=== PATIENT | female | born 1980 | race African-American/Black ===

== ENCOUNTER 2017-08-03 18:20 | Emergency (ER) | payer OTHER, BC ==
[~2017-08-03] VITALS: Ht 165.1 cm; Wt 120.7 kg
[2017-08-03 19:21] VITALS: BP 182/102
[2017-08-03] MEDS ORDERED: IBUPROFEN 800 MG TABLET. PO ONE (20:15)
[2017-08-03] MEDS ORDERED: CYCL10TA2 PO (20:19)
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
== END 2017-08-03 20:32 | disposition home or self-care (01) ==
LOC: ER 18:20
DX: S16.1XXA Strain of muscle, fascia and tendon at neck level, initial encounter (principal); S29.012A Strain of muscle and tendon of back wall of thorax, initial encounter; S70.02XA Contusion of left hip, initial encounter; S70.12XA Contusion of left thigh, initial encounter; I10 Essential (primary) hypertension; E66.01 Morbid (severe) obesity due to excess calories; Z68.41 Body mass index [BMI] 40.0-44.9, adult; V43.52XA Car driver injured in collision with other type car in traffic accident, initial encounter; Y93.I9 Activity, other involving external motion; Y92.410 Unspecified street and highway as the place of occurrence of the external cause; Y99.8 Other external cause status
CPT/HCPCS: 81025; 99283